=== PATIENT | female | born 1980 | race Caucasian/White ===

== ENCOUNTER 2019-02-04 08:58 | Outpatient (CLI) | payer OTHER ==
--- NOTE | 2019-02-04 10:19 | RAD ---
CERVICAL SPINE 4 VIEWS: Date: 02/04/19 COMPARISON: None. HISTORY: Left shoulder pain. FINDINGS: Cervical vertebral body height and alignment appears normal on the lateral view. Open-mouth odontoid view demonstrates a normal appearing dens and C1-2 articulation. The cervicothoracic junction appear s intact on the swimmer's lateral view. IMPRESSION: No acute osseous abnormality. If there are radicular symptoms, follow-up MRI of the cervical spine ma y be beneficial. POS: [facility]
--- NOTE | 2019-02-04 10:20 | RAD ---
LEFT SHOULDER 3 VIEWS: DATE: 02/04/19 COMPARISON: None. HISTORY: Left shoulder pain. FINDINGS: There is no widening of the acromioclavicular or coracoclavicular interspace. No displaced fracture o r evidence of dislocation. IMPRESSION: No acute findings. POS: [facility]
== END 2019-02-04 08:59 | disposition home or self-care (01) ==
LOC: SCSRAD 08:58
PROVIDERS: ATTEND Nurse Practitioner Family
DX: M25.512 Pain in left shoulder (principal)
CPT/HCPCS: 72040